=== PATIENT | male | born 1960 | race Caucasian/White ===

== ENCOUNTER → 2025-05-01 16:44 | Outpatient (CLI) | payer BC, SELFPAY ==
--- NOTE | 2025-05-01 16:46 | DI.MRI.S_ITS ---
PROCEDURE: MR PELVIC PROSTATE PROTOCOL INDICATIONS: 64 y/o M w/ an elevated PSA, please eval TECHNIQUE: Coronal HASTE, axial T1 FSE with fat saturation, 3-plane nonbreath-hold T2 FSE. After the administration of contrast, dynamic axial, delayed axial and coronal VIBE or 2-D FLASH with fat saturation through the pelvis. Diffusion weighted imaging and ADC was performed. COMPARISON: None. FINDINGS: Image quality: Diagnostic Prostate: Gland size is 6.0 x 4.7 x 5.6 cm; ellipsoid gland volume is 82 mL. Given PSA of 8.97, PSA density is 0.11. There is hypertrophy of the transition zone and a few microlobulated nodules along the base of the prostate extending into the bladder. The craniocaudal diameter of the gland has actually decreased compared to the prior exam, but the gland base margin has become increasingly micronodular. The peripheral zone is compressed. There are no significantly T2 hypointense transition zone nodules or masses. No significant peripheral zone diffusion restriction. Genitourinary system: Bladder wall thickness is normal. Distal ureters are non distended. Bowel and peritoneum: Extensive diverticulosis of the distal colon. Normal appendix. Remainder of the visible bowel loops are unremarkable. No pathologic free pelvic fluid. Nodes and vessels: No pelvic or inguinal adenopathy by size criteria. Iliac vessels are normal in caliber. Soft tissues: No inguinal hernias. Bones: Marrow demonstrates normal overall signal, without lesions to suggest metastases. IMPRESSION: Findings typical of benign prostatic hypertrophy, PI-RADS two. Mild decrease in craniocaudal extent of the gland. No pelvic lymphadenopathy by size criteria. No aggressive osseous abnormality. Dictated by: Chelsea Haynes M.D. on 05/03/2025 at 22:56 Approved by: Chelsea Haynes M.D. on 05/03/2025 at 23:12
== END ==
PROVIDERS: PCP Family Medicine; Referring Provider Urology; Visit Provider Urology
DX: R97.20 Elevated prostate specific antigen [PSA] (principal); N40.2 Nodular prostate without lower urinary tract symptoms
CPT/HCPCS: 72197; A9579